=== PATIENT | female | born 1985 | race Caucasian/White ===

== ENCOUNTER 2017-12-18 10:53 | Inpatient (IN) | payer BC ==
[~2017-12-18] VITALS: Ht 175.3 cm; Wt 92.7 kg
[2017-12-18] VITALS (30 sets, daily range): BP systolic 108–155; BP diastolic 56–94; PULSE 71–93; TEMP 97.6–97.7
[2017-12-18] MEDS ORDERED: PRENATAL1 TA7 PO (11:57)
[2017-12-18] MEDS ORDERED: PEPCID40 MG PO (11:57)
[2017-12-18] MEDS ORDERED: FLONASEALLERGY NS (11:58)
[2017-12-18 12:29] LABS: BASO % 0.3 % (0.0-2.0); EOS # 0.1 (0.0-0.7); EOS % 1.6 % (0-4.0); GRAN # 6.6 (1.4-6.5); GRAN % 73.9 % (42.2-75.2); HEMATOCRIT 38.8 % (37.0-47.0); HEMOGLOBIN 13.9 g/dl (12.5-16.0); LYMPH # 1.4 (1.2-3.4); LYMPH % 15.3 % (20.0-51.0); MEAN CELL VOLUME 83 fl (80.0-100.0); MEAN CORPUSCULAR HEMOGLOBIN 30 pg (27.0-31.0); MEAN CORPUSCULAR HGB CONC 36 g/dl (33.0-37.0); MEAN PLATELET VOLUME 10.9 fl (7.4-10.4); MONO # 0.7 (0.1-0.6); MONO % 7.9 % (1.7-9.3); PLATELET COUNT 212 K/mm3 (130-400); RED BLOOD COUNT 4.68 M/mm3 (4.10-5.30); REDCELL DISTRIBUTION WIDTH-CV 11.9 % (11.5-14.5)
[2017-12-19 04:15] VITALS: BP 141/89; PULSE 80
[2017-12-19 07:20] VITALS: BP 142/88; PULSE 78; TEMP 97.3
[2017-12-19 09:25] VITALS: BP 125/75; PULSE 75
[2017-12-19 16:00] VITALS: BP 128/81; PULSE 88; TEMP 97.7
[2017-12-19 20:40] VITALS: BP 123/83; PULSE 77; TEMP 98.3
[2017-12-20 07:50] VITALS: BP 143/91; PULSE 87; TEMP 98.3
[2017-12-20] MEDS ORDERED: PERCOCET 325 MG1 TA2 PO (11:39)
[2017-12-20] MEDS ORDERED: IBU600 MG PO (11:39)
[2017-12-20] MEDS ORDERED: PROCARDIA XL 3030 MG PO (11:41)
== END 2017-12-20 12:30 | disposition home or self-care (01) | DRG 774 ==
LOC: OB 10:53 → LDR 11:41 → OB 19:30
PROVIDERS: Obstetrics & Gynecology
PROC: 10E0XZZ Delivery of Products of Conception, External Approach (ICD-10-PCS; principal; 2017-12-18)
PROC: 0UQJXZZ Repair Clitoris, External Approach (ICD-10-PCS; 2017-12-18)
PROC: 0HQ9XZZ Repair Perineum Skin, External Approach (ICD-10-PCS; 2017-12-18)
PROC: 3E033VJ Introduction of Other Hormone into Peripheral Vein, Percutaneous Approach (ICD-10-PCS; 2017-12-18)
PROC: 10907ZC Drainage of Amniotic Fluid, Therapeutic from Products of Conception, Via Natural or Artificial Opening (ICD-10-PCS; 2017-12-18)
DX: O36.8130 Decreased fetal movements, third trimester, not applicable or unspecified (principal); O13.5 Gestational [pregnancy-induced] hypertension without significant proteinuria, complicating the puerperium; Z3A.38 38 weeks gestation of pregnancy; Z37.0 Single live birth; O70.0 First degree perineal laceration during delivery; O71.89 Other specified obstetric trauma
CPT/HCPCS: J0595; J2590; J2795; J7120

== ENCOUNTER → 2017-12-28 | Outpatient (CLI) | payer BC ==
[~2017-12-28] MED LIST: FLONASEALLERGY NS; IBU600 MG PO; PEPCID40 MG PO; PERCOCET 325 MG1 TA2 PO; PRENATAL1 TA7 PO; PROCARDIA XL 3030 MG PO
== END ==
LOC: LAC 10:17
DX: Z39.1 Encounter for care and examination of lactating mother (principal); Z71.89 Other specified counseling

== ENCOUNTER → 2018-02-07 | Outpatient (CLI) | payer BC | LOC: COL.RAD 10:30 | DX: R10.11 Right upper quadrant pain (principal) ==

== ENCOUNTER 2018-09-11 14:36 | Emergency (ER) | payer BC ==
[~2018-09-11] VITALS: Ht 172.7 cm; Wt 77.3 kg
[2018-09-11 14:40] VITALS: BP 158/103; TEMP 98.9
[2018-09-11 15:12] LABS: COLLECTION METHOD CLEAN CATCH
[2018-09-11 15:20] LABS: MUCOUS Present /lpf; PH 5 (5-8); URINE APPEARANCE Clear; URINE BACTERIA None Seen /hpf; URINE BILIRUBIN Negative (NEGATIVE); URINE BLOOD Negative (NEGATIVE); URINE COLOR Yellow; URINE GLUCOSE Negative (NEGATIVE); URINE KETONE Trace (NEGATIVE); URINE LEUKOCYTE ESTERASE Negative (NEGATIVE); URINE NITRATE Negative (NEGATIVE); URINE PROTEIN(semi-quant) Negative (NEGATIVE); URINE RBC 0-2 /hpf; URINE UROBILINOGEN >=4.0 mg/dL (NEGATIVE)
[2018-09-11 15:44] LABS: BASO % 0.2 % (0.0-2.0); EOS # 0.3 (0.0-0.7); EOS % 6.2 % (0-4.0); GRAN # 2.2 (1.4-6.5); GRAN % 54.2 % (42.2-75.2); HEMOGLOBIN 14.5 g/dl (12.5-16.0); LYMPH # 1.2 (1.2-3.4); LYMPH % 28.5 % (20.0-51.0); MEAN CELL VOLUME 84 fl (80.0-100.0); MEAN CORPUSCULAR HEMOGLOBIN 30 pg (27.0-31.0); MEAN CORPUSCULAR HGB CONC 35 g/dl (33.0-37.0); MEAN PLATELET VOLUME 9.7 fl (7.4-10.4); MONO # 0.4 (0.1-0.6); MONO % 10.7 % (1.7-9.3); PLATELET COUNT 226 K/mm3 (130-400); RED BLOOD COUNT 4.86 M/mm3 (4.10-5.30); REDCELL DISTRIBUTION WIDTH-CV 11.2 % (11.5-14.5)
[2018-09-11 15:55] LABS: ALBUMIN 4.1 gm/dL (3.5-5.0); BILIRUBIN,TOTAL 1.1 mg/dL (0.0-1.0); CALCIUM 8.8 mg/dL (8.4-10.2); CREATININE, serum 0.64 mg/dL (0.52-1.25); POTASSIUM 3.5 mmol/L (3.4-5.0); TOTAL PROTEIN 7.4 gm/dL (6.4-8.2)
[2018-09-11] MEDS ORDERED: ZOFRAN 4MG T4 MG/TAB PO (16:41)
[2018-09-11] MEDS ORDERED: NORCO 325 MG-51 TAB PO (16:41)
[2018-09-11 17:09] VITALS: PULSE 83
== END 2018-09-11 17:11 | disposition home or self-care (01) ==
LOC: COL.ER 14:36
PROVIDERS: Emergency Medicine
DX: R10.9 Unspecified abdominal pain (principal)
CPT/HCPCS: J1885; J2405; J3010; J7030; Q9967

== ENCOUNTER → 2018-09-19 | Outpatient (CLI) | payer BC ==
[~2018-09-19] MED LIST changes: +NORCO 325 MG-51 TAB PO; +ZOFRAN 4MG T4 MG/TAB PO
== END ==
LOC: COL.RAD 06:51
DX: R10.11 Right upper quadrant pain (principal)
CPT/HCPCS: A9537

== ENCOUNTER 2018-10-25 07:39 | Day surgery (SDC) | payer BC ==
[~2018-10-25] VITALS: Ht 172.7 cm; Wt 74.8 kg
[2018-10-25 08:05] VITALS: BP 122/80; PULSE 77; TEMP 98
[2018-10-25] MEDS ORDERED: PRILOSEC 20MG20 MG PO (09:11)
[2018-10-25 09:20] VITALS: BP 111/74; PULSE 69; TEMP 97.8
--- NOTE | 2018-10-25 09:20 | NUR ---
PT RETURNS FROM PROCEDURE TO [facility] BY CART. AMBULATES FROM CART TO CHAIR WITH STANDBY ASSIST. MONITORS APPLIED. VSS AND WNL. OXYGEN AT ROOM. AIR. PT DENIES PAIN OR NAUSEA. REQUESTS MUFFIN AND DIET PEPSI. IN ROOM. CALL LIGHT IN REACH.
[2018-10-25 09:35] VITALS: BP 122/83; PULSE 76
--- NOTE | 2018-10-25 09:35 | NUR ---
PT REMAINS ALERT. TOLERATES FOOD AND DRINK. DENIES PAIN OR NAUSEA. IV DC'D. CATH TIP INTACT. PT TOLERATES WELL. IN ROOM. CALL LIGHT IN REACH.
[2018-10-25 09:50] VITALS: BP 128/80; PULSE 72
--- NOTE | 2018-10-25 09:50 | NUR ---
DR. SNOW IN ROOM. PT CONTINUES TO DENY PAIN OR NAUSEA. CALL LIGHT IN REACH.
== END 2018-10-25 10:00 | disposition home or self-care (01) ==
LOC: SDCO 07:39
DX: K29.30 Chronic superficial gastritis without bleeding (principal); Z88.0 Allergy status to penicillin; Z88.1 Allergy status to other antibiotic agents; Z88.8 Allergy status to other drugs, medicaments and biological substances
CPT/HCPCS: J2250; J2310; J3010; J7030

== ENCOUNTER → 2019-10-31 | Outpatient (CLI) | payer BC ==
[~2019-10-31] MED LIST changes: +PRILOSEC 20MG20 MG PO
== END ==
LOC: COL.CARD 11:16
DX: I49.3 Ventricular premature depolarization (principal)

== ENCOUNTER 2021-04-30 08:31 | Day surgery (SDC) | payer BC ==
[~2021-04-30] VITALS: Ht 172.7 cm; Wt 72.8 kg
[2021-04-30 09:00] VITALS: BP 120/72; PULSE 76; TEMP 97.7
[2021-04-30] MEDS ORDERED: NORCO 325 MG-51 TAB PO (12:25)
[2021-04-30 13:10] VITALS: BP 130/94; PULSE 75; TEMP 98.1
--- NOTE | 2021-04-30 13:10 | NUR ---
The patient arrived back to [facility] from the recovery room at this time. The patient appears alert and oriented and denies any pain or nasuea at this time. Post operative vital signs were started at this time. The patient has tried some water in PACU and appeared to tolerate it well and now agrees to try some grape juice. Call light is within reach. Will continue to monitor the patient.
[2021-04-30 13:23] VITALS: BP 131/67; PULSE 72
--- NOTE | 2021-04-30 13:23 | NUR ---
The patient appears to be tolerating the juice well. The patient denies any pain or nausea at this time. Call light is within reach. Will continue to monitor the patient.
--- NOTE | 2021-04-30 13:35 | NUR ---
The patient has finished her juice and appeared to tolerate it well. The patient denies wanting anything further to eat or drink at this time. The patient ambulated to the bathroom with the stand by assistance of one nurse and appeared tolerate the activity well. The patient voided without difficulty and voices a desire to be discharged home.
[2021-04-30 13:40] VITALS: BP 125/72; PULSE 40
[2021-04-30 13:42] VITALS: BP 130/94; PULSE 75; TEMP 99.4
--- NOTE | 2021-04-30 13:45 | NUR ---
Discharge instructions were reviewed with the patient at this time. She verbalized understanding and has no questions for the nurse at this time. The patient's IV to her left hand was removed and a pressure dressing was applied to the site. The patient is dressed and ready to be escorted out.
--- NOTE | 2021-04-30 13:55 | NUR ---
The patient was escorted out via wheelchair to a private vehicle by JEF Banks. The patient's belongings and discharge paperwork were sent with her. The patient's is present to drive her home.
== END 2021-04-30 13:55 | disposition home or self-care (01) ==
LOC: SDCO 08:31
DX: J32.9 Chronic sinusitis, unspecified (principal); J33.9 Nasal polyp, unspecified; J32.0 Chronic maxillary sinusitis; J30.9 Allergic rhinitis, unspecified; Z79.899 Other long term (current) drug therapy
CPT/HCPCS: J3010; J7120